=== PATIENT | male | born 1960 | race Two or more races ===

== ENCOUNTER 2020-05-16 15:15 | Observation (INO) ==
[2020-05-16] MEDS ORDERED: NS 0.9% 1000 ml BAG 1,000 ML IV ONE (16:25)
[2020-05-16] MEDS ORDERED: Iohexol 350 (CONTRAST) 500 ML MDV IV ONE (16:34)
[2020-05-16 17:35] LABS: ABS Monocytes 1.2 10^3/ul (0-0.8); ABS Neutrophils 8.7 10^3/ul (1.5-7.7); Eosinophil % 0.1 %; Hematocrit 30 % (42-52); Hemoglobin 9.5 g/dL (14.0-18.0); Mean Corpuscular HGB Conc 32 g/dL (31-36); Mean Corpuscular Hemoglobin 28 pg (27-31); Mean Corpuscular Volume 88 fL (80-94); Mean Platelet Volume 7.6 fL (7.4-10.4); Platelet Count 256 10^3/uL (150-450); Red Blood Count 3.35 10^6 /uL (4.18-5.48); Red Cell Distribution Width 18 % (10-15); White Blood Count 10.9 10^3/uL (3.5-10.8)
[2020-05-16 17:56] LABS: ALT 19 U/L (7-52); AST 15 U/L (13-39); Albumin 3.9 g/dL (3.2-5.2); Albumin/Globulin Ratio 1.4 (1-3); Alkaline Phosphatase 78 U/L (34-104); Anion Gap 8 mmol/L (2-11); BUN/Creatinine Ratio 26.5 (8-20); Blood Urea Nitrogen 30 mg/dL (6-24); C Reactive Protein 7.07 mg/L (<8.01); CO2 Carbon Dioxide 23 mmol/L (22-32); Calcium 8.6 mg/dL (8.6-10.3); Chloride 108 mmol/L (101-111); EGFR African American 80.6 (>60); EGFR Non-African American 66.7 (>60); Globulin 2.8 g/dL (2-4); Glucose 122 mg/dL (70-100); Potassium 3.8 mmol/L (3.5-5.0); Sodium 139 mmol/L (135-145); Total Protein 6.7 g/dL (6.4-8.9)
[2020-05-16] MEDS ORDERED: Furosemide 40 mg/4 ml IV VIAL IV SLOW PU ONE (23:14)
[2020-05-16 23:55] LABS: % Iron Saturation 5 % (15-55); Iron 24 ug/dL (50-212); Total Iron Binding Capacity 468 mcg/dL (250-450); Transferrin 334 mg/dL (203-362); Unsaturated Iron Binding < 453 ug/dL
[2020-05-17 00:29] LABS: Ferritin 24.8 ng/mL (24-336)
[2020-05-17 00:32] LABS: Folate > 20.00 ng/mL (>3.99)
[2020-05-17 00:34] LABS: Vitamin B12 212 pg/mL (180-914)
[2020-05-17] MEDS ORDERED: Witch Hazel PAD JAR TOPICAL PRN (01:33)
[2020-05-17 07:09] LABS: ABS Eosinophils 0.1 10^3/ul (0-0.6); ABS Lymphocytes 1.4 10^3/ul (1.0-4.8); ABS Monocytes 0.9 10^3/ul (0-0.8); ABS Neutrophils 5.4 10^3/ul (1.5-7.7); Eosinophil % 1.5 %; Hematocrit 30 % (42-52); Lymphocyte % 17.7 %; Mean Corpuscular HGB Conc 34 g/dL (31-36); Mean Corpuscular Hemoglobin 30 pg (27-31); Mean Corpuscular Volume 88 fL (80-94); Mean Platelet Volume 7.6 fL (7.4-10.4); Platelet Count 243 10^3/uL (150-450); Red Blood Count 3.37 10^6 /uL (4.18-5.48); Red Cell Distribution Width 17 % (10-15); White Blood Count 7.8 10^3/uL (3.5-10.8)
[2020-05-17] MEDS: Albuterol HFA INHALER 8 gm MDI INH PRN ×2 (08:54→12:51)
[2020-05-17] MEDS ORDERED: Iron Sucrose 200 MG in NS 0.9% 100 ml BAG 100 ML IVPB ONE (11:54)
[2020-05-17] MEDS ORDERED: Furosemide 40 mg/4 ml IV VIAL IV ONE (11:55)
[2020-05-17 13:50] LABS: Urine Appearance Clear; Urine Bilirubin Negative (Negative); Urine Blood 1+ (Negative); Urine Color Straw; Urine Glucose Negative (Negative); Urine Ketones Negative (Negative); Urine Nitrite Negative (Negative); Urine Protein Negative (Negative); Urine Specific Gravity 1.008 (1.010-1.030); Urine Urobilinogen Negative (Negative)
[2020-05-17 13:57] LABS: Urine Bacteria Absent (Absent); Urine Red Blood Cell 1+(3-5/hpf) (Absent); Urine Squamous Epithelial Cell Present (Absent); Urine White Blood Cell Trace(0-5/hpf) (Absent)
[2020-05-17 16:12] VITALS: BP 130/70
== END 2020-05-17 17:30 ==
LOC: ED 15:15 → MED 15:15
PROVIDERS: ADMIT Internal Medicine; ATTEND Internal Medicine